=== PATIENT | male | born 1970 | race Caucasian/White ===

== ENCOUNTER 2019-09-23 05:40 | Outpatient (CLI) | payer OTHER ==
[~2019-09-23] VITALS: Ht 162 cm; Wt 80.4 kg
[2019-09-23] MEDS ORDERED: TRAZ-227 PO (12:12)
[2019-09-23] MEDS ORDERED: MELA5CAP PO (12:12)
[2019-09-23] MEDS ORDERED: PRAM0.754 PO (12:12)
[2019-09-23] MEDS ORDERED: TRIA1CAP4 PO (12:12)
[2019-09-23] MEDS ORDERED: OXCA300T18 PO (12:12)
[2019-09-23] MEDS ORDERED: PANT20TA3 PO (12:12)
[2019-09-23] MEDS ORDERED: MELO7.5T46 PO (12:12)
[2019-09-23] MEDS ORDERED: CARV6.25 PO (12:12)
[2019-09-23] MEDS ORDERED: DOXY100T2 PO (12:12)
== END 2019-09-23 13:03 | disposition home or self-care (01) ==
LOC: PREOP 05:40
PROVIDERS: ATTEND Surgery
DX: Z01.818 Encounter for other preprocedural examination (principal)

== ENCOUNTER → 2019-10-15 | Outpatient (CLI) | payer BC, MEDICARE ==
[~2019-10-15] MED LIST: CARV6.25 PO; DOXY100T2 PO; MELA5CAP PO; MELO7.5T46 PO; OXCA300T18 PO; PANT20TA3 PO; PRAM0.754 PO; TRAZ-227 PO; TRIA1CAP4 PO
--- NOTE | 2019-10-15 14:29 | Diagnostic Imaging Report ---
PROCEDURE: MRI lumbar spine. TECHNIQUE: Multiplanar, multisequence MRI of the lumbar spine was performed without contrast. INDICATION: Low back pain. COMPARISON: None. FINDINGS: There are five lumbar-type vertebral bodies for the purposes of this report. Normal alignment. Vertebral body heights are preserved. Benign hemangioma in the L4 segment. Modic type I degenerative endplate changes in the superior endplates of L3 and L4. Bone marrow signal is otherwise unremarkable. No abnormal signal in the conus which terminates at L2. Normal morphology of the cauda equina. Visualized paravertebral soft tissues are unremarkable. L1-L2: Normal. L2-L3: Annular disc bulge results in mild bilateral lateral recess narrowing. Mild bilateral neuroforaminal narrowing. No substantial spinal canal narrowing. L3-L4: Annular disc bulge results in mild bilateral lateral recess and neuroforaminal narrowing. No substantial spinal canal narrowing. L4-L5: No spinal canal, lateral recess narrowing. Mild bilateral neuroforaminal narrowing. L5-S1: No spinal canal, lateral recess, or neuroforaminal narrowing. IMPRESSION: 1. Spondylotic changes result in scattered mild spinal canal, lateral recess, and neuroforaminal narrowing, as above. No high-grade neural impingement. 2. No acute osseous findings. Dictated by: Dictated on workstation # [id number]
== END ==
LOC: RAD 12:50
PROVIDERS: ATTEND Physician Assistant
DX: M47.816 Spondylosis without myelopathy or radiculopathy, lumbar region (principal); M54.42 Lumbago with sciatica, left side
CPT/HCPCS: 72148